=== PATIENT | female | born 1960 | race Caucasian/White ===

== ENCOUNTER 2019-09-16 10:03 | Observation (INO) | payer OTHER ==
[~2019-09-16] VITALS: Ht 170 cm; Wt 72.0 kg
--- NOTE | 2019-09-16 10:37 | ED Chest Pain ---
General Chief Complaint: Respiratory Problems Stated Complaint: SOB;COUGH Nursing Triage Note: ARRIVED VIA AMB TO [facility]. COMPLAINS OF SOA, COUGH X1 WEEK. ALSO STATES HER LEFT CHEST HURTS BUT THINKS IT IS RELATED TO THE COUGHING. Nursing Sepsis Screen: No Definite Risk Source: patient Exam Limitations: no limitations History of Present Illness Date Seen by Provider: Sep 16, 2019 Time Seen by Provider: 10:20 Initial Comments Patient presents ER by private conveyance with chief complaint of the past week having some shortness of breath, nonproductive cough. She smokes about a pack cigarettes per day. She's been told the past at urgent care she may have COPD but she does not follow with a primary care doctor. She's also told she might have high blood pressure. No known history of heart disease. She's having some chest pain off and on in her left upper chest radiating through to her back. It radiates to her axilla but not to her arm or jaw. She has not taken any routine medications. She says her mom and sister both had heart disease early and her mom had to have a CABG in her early 50s. She's not having any fever or chills. No nausea vomiting or sweats. Allergies and Home Medications Allergies Coded Allergies: No Known Drug Allergies (Unverified , 09/16/19) Home Medications Ibuprofen 200 Mg Capsule, 800 MG PO Q8H PRN for PAIN-MILD (1-4), (Reported) Patient Home Medication List Home Medication List Reviewed: Yes Review of Systems Review of Systems Constitutional: No chills, No diaphoresis EENTM: No Blurred Vision, No Double Vision Respiratory: Cough, Shortness of Air, SOA at Rest Cardiovascular: Chest Pain; Denies Edema, Denies Palpitations, Denies Syncope Gastrointestinal: Denies Constipated, Denies Diarrhea, Denies Nausea Genitourinary: Denies Burning, Denies Discharge Musculoskeletal: No back pain, No joint pain Skin: No pruritus, No rash Psychiatric/Neurological: Headache; Denies Numbness, Denies Paresthesia All Other Systems Reviewed Negative Unless Noted: Yes Past Agodlbi-Uuvwiz-Vzpuzw Hx Patient Social History Alcohol Use: Occasionally Uses Recreational Drug Use: No Smoking Status: Current Everyday Smoker Recent Foreign Travel: No Contact w/Someone Who Travel: No Recent Infectious Disease Expo: No Recent Hopitalizations: No Seasonal Allergies Seasonal Allergies: No Past Medical History Surgeries: Yes Hysterectomy Respiratory: Yes (THINKS SHE HAS UNDIAGNOSED COPD/EMPHYSEMA) Cardiac: No Neurological: No Genitourinary: No Gastrointestinal: No Endocrine: No HEENT: No Cancer: No Psychosocial: No Integumentary: No Physical Exam Vital Signs Vital Signs - First Documented 09/16/19 10:03 Temp 36.7 Pulse 99 Resp 18 B/P (MAP) 174/97 (122) Pulse Ox 97 O2 Delivery Room Air Capillary Refill : Less Than 3 Seconds Height, Weight, BMI Height: '" Weight: lbs. oz. kg; 24.00 BMI Method: General Appearance: WD/WN, Mild Distress HEENT: PERRL/EOMI, Pharynx Normal, Moist Mucous Membranes Neck: Full Range of Motion, Normal Inspection Respiratory: Lungs Clear, Normal Breath Sounds, No Accessory Muscle Use, No Respiratory Distress Cardiovascular: Regular Rate, Rhythm, No Edema, Normal Peripheral Pulses Gastrointestinal: Normal Bowel Sounds, Non Tender, Soft Extremity: Normal Capillary Refill, Normal Inspection Neurologic/Psychiatric: Alert, Oriented x3 Skin: Normal Color, Warm/Dry Focused Exam Sepsis Stage: Ruled Out Reason for ruling out sepsis: does not meet SIRS criteria. Possible Source: Pulmonary Progress/Results/Core Measures Results/Orders Lab Results Laboratory Tests Test 09/16/19 10:20 09/16/19 12:00 Range/Units White Blood Count 6.4 4.3-11.0 10^3/uL Red Blood Count 4.55 4.35-5.85 10^6/uL Hemoglobin 15.0 11.5-16.0 G/DL Hematocrit 43 35-52 % Mean Corpuscular Volume 95 80-99 FL Mean Corpuscular Hemoglobin 33 25-34 PG Mean Corpuscular Hemoglobin Concent 35 32-36 G/DL Red Cell Distribution Width 13.4 10.0-14.5 % Platelet Count 258 130-400 10^3/uL Mean Platelet Volume 10.3 7.4-10.4 FL Neutrophils (%) (Auto) 53 42-75 % Lymphocytes (%) (Auto) 30 12-44 % Monocytes (%) (Auto) 12 0-12 % Eosinophils (%) (Auto) 5 0-10 % Basophils (%) (Auto) 1 0-10 % Neutrophils # (Auto) 3.4 1.8-7.8 X 10^3 Lymphocytes # (Auto) 1.9 1.0-4.0 X 10^3 Monocytes # (Auto) 0.8 0.0-1.0 X 10^3 Eosinophils # (Auto) 0.3 0.0-0.3 10^3/uL Basophils # (Auto) 0.0 0.0-0.1 10^3/uL Prothrombin Time 12.6 12.2-14.7 SEC INR Comment 0.9 0.8-1.4 Activated Partial Thromboplast Time 28 24-35 SEC D-Dimer 0.36 0.00-0.49 UG/ML Sodium Level 136 135-145 MMOL/L Potassium Level 4.2 3.6-5.0 MMOL/L Chloride Level 102 98-107 MMOL/L Carbon Dioxide Level 22 21-32 MMOL/L Anion Gap 12 5-14 MMOL/L Blood Urea Nitrogen 13 7-18 MG/DL Creatinine 0.82 0.60-1.30 MG/DL Estimat Glomerular Filtration Rate > 60 BUN/Creatinine Ratio 16 Glucose Level 106 H 70-105 MG/DL Calcium Level 9.1 8.5-10.1 MG/DL Corrected Calcium 8.8 8.5-10.1 MG/DL Magnesium Level 2.2 1.6-2.4 MG/DL Total Bilirubin 0.6 0.1-1.0 MG/DL Aspartate Amino Transf (AST/SGOT) 23 5-34 U/L Alanine Aminotransferase (ALT/SGPT) 23 0-55 U/L Alkaline Phosphatase 102 40-136 U/L Myoglobin 47.1 10.0-92.0 NG/ML Troponin I < 0.028 <0.028 NG/ML B-Type Natriuretic Peptide 49.2 <100.0 PG/ML Total Protein 8.1 6.4-8.2 GM/DL Albumin 4.4 3.2-4.5 GM/DL My Orders Orders - KATHIE LEUNG Cbc With Automated Diff (09/16/19 10:31) Magnesium (09/16/19 10:31) Chest 1 View, Ap/Pa Only (09/16/19 10:31) Ekg Tracing (09/16/19 10:31) Comprehensive Metabolic Panel (09/16/19 10:31) Myoglobin Serum (09/16/19 10:31) Protime With Inr (09/16/19 10:31) Partial Thromboplastin Time (09/16/19 10:31) O2 (09/16/19 10:31) Monitor-Rhythm Ecg Trace Only (09/16/19 10:31) Lipid Panel (09/17/19 06:00) Ed Iv/Invasive Line Start (09/16/19 10:31) BNP (09/16/19 10:31) Troponin I (09/16/19 10:31) Nitroglycerin 0.4 Mg Btl 25's (Nitrostat (09/16/19 10:45) Aspirin Chewable Tablet (Baby Aspirin Ch (09/16/19 10:45) Coronavirus Sars-Cov-2 So 2018 (09/16/19 10:31) Fibrin Degradation Products (09/16/19 10:20) Ceftriaxone For Iv Use (Rocephin For I (09/16/19 12:15) Azithromycin Tablet (Zithromax Tablet) (09/16/19 12:15) Blood Culture (09/16/19 12:10) Medications Given in ED Current Medications Medications Dose Ordered Sig/Madi Route Start Time Stop Time Status Last Admin Dose Admin Aspirin 324 mg ONCE ONCE PO 09/16/19 10:45 09/16/19 10:46 DC 09/16/19 10:39 324 MG Azithromycin 500 mg ONCE ONCE PO 09/16/19 12:15 09/16/19 12:16 DC 09/16/19 12:21 500 MG Ceftriaxone Sodium 1000 mg/ Sterile Water 10 ml @ 200 mls/hr ONCE ONCE IV 09/16/19 12:15 09/16/19 12:17 DC 09/16/19 12:20 200 MLS/HR Nitroglycerin 0.4 mg UD PRN SL 09/16/19 10:45 09/16/19 13:02 DC 09/16/19 10:51 0.4 MG Vital Signs/I&O 09/16/19 10:03 Temp 36.7 Pulse 99 Resp 18 B/P (MAP) 174/97 (122) Pulse Ox 97 O2 Delivery Room Air Blood Pressure Mean: 122 Progress Progress Note #1: Time: 10:36 Progress Note We'll trial aspirin and nitroglycerin. We'll get COVID-19 swab. Even she has a negative troponin should have 4 points and the heart score so we would recommend observation. Presently she rates her pain as a 4 out of 10. Progress Note #2: Time: 12:01 Progress Note After discussing the case with the patient she agrees to stay on observation to repeat delta troponins. We'll cover her with Rocephin and azithromycin and get some blood cultures. She is not septic. Initial ECG Impression Date: Sep 16, 2019 Initial ECG Impression Time: 10:10 Initial ECG Rate: 89 Initial ECG Rhythm: Normal Sinus Initial ECG Intervals: Normal Initial ECG Impression: Normal Initial ECG Comparisson: No Previous ECG Available Comment Normal sinus rhythm without relevant ST changes. Diagnostic Imaging Diagonstic Imaging: Xray Plain Films/CT/US/NM/MRI: chest (1v) Comments NAME: JEANNETTE FOX [facility] REC#: [id number] PT STATUS: REG ER : 1960 PHYSICIAN: KATHIE LEUNG MD ADMIT DATE: 09/16/19/ER Draft Date of Exam:09/16/19 CHEST 1 VIEW, AP/PA ONLY INDICATION: Shortness of breath and cough. TIME OF EXAM: 10:45 AM COMPARISON: No prior studies are available for comparison. The heart size is normal. Pulmonary vascularity is normal. There is minimal density in the right base. Possibility of minimal infiltrate cannot be excluded. Left lung is clear. There is no effusion. There is no pneumothorax. IMPRESSION: There may be minimal infiltrate in the right base. The study is otherwise unremarkable. Dictated on workstation # [id number] Dict: 09/16/19 1101 Trans: 09/16/19 1105 [facility] [id number] Interpreted by: UMBERTO KAUR MD Electronically signed by: Reviewed: Reviewed by Me Departure Communication (Admissions) Time/Spoke to Admitting Phy: 12:[address] Elkins. She agrees to observe the patient with cardiac consultation. She agrees with Rocephin and azithromycin. Time/Spoke to Consulting Phy: 12:[address] Lopez and he agrees to consult on the patient with serial troponins. Impression Primary Impression: Pneumonia Qualified Codes: J18.1 - Lobar pneumonia, unspecified organism Additional Impressions: Acute coronary syndrome COVID-19 PUI Disposition: ADMITTED INPATIENT Condition: Stable Admissions Decision to Admit Reason: Admit from ER (General) Decision to Admit/Date: Sep 16, 2019 Time/Decision to Admit Time: 11:29 KATHIE LEUNG Sep 16, 2019 10:37
[2019-09-16] MEDS: NITROGLYCERIN 0.4 MG SL TABS BTL 25'S SL PRN ×2 (10:39→10:51)
[2019-09-16 10:40] LABS: BASOPHILS % (AUTO) 1 % (0-10); EOSINOPHILS # (AUTO) 0.3 10^3/uL (0.0-0.3); EOSINOPHILS % (AUTO) 5 % (0-10); HEMATOCRIT 43 % (35-52); LYMPHOCYTES # (AUTO) 1.9 X 10^3 (1.0-4.0); LYMPHOCYTES % (AUTO) 30 % (12-44); MEAN CORPUSCULAR HEMOGLOBIN 33 PG (25-34); MEAN CORPUSCULAR HGB CONC 35 G/DL (32-36); MEAN CORPUSCULAR VOLUME 95 FL (80-99); MEAN PLATELET VOLUME 10.3 FL (7.4-10.4); MONOCYTES # (AUTO) 0.8 X 10^3 (0.0-1.0); MONOCYTES % (AUTO) 12 % (0-12); NEUTROPHILS # (AUTO) 3.4 X 10^3 (1.8-7.8); NEUTROPHILS % (AUTO) 53 % (42-75); PLATELET COUNT 258 10^3/uL (130-400); RED CELL DISTRIBUTION WIDTH 13.4 % (10.0-14.5); WHITE BLOOD COUNT 6.4 10^3/uL (4.3-11.0)
[2019-09-16] MEDS ORDERED: ASPIRIN 81 MG CHEW (CHILDREN'S ASA) PO ONE (10:45)
[2019-09-16 10:53] LABS: FIBRIN DEGRADATION PRODUCTS 0.36 UG/ML (0.00-0.49); INR 0.9 (0.8-1.4); PROTHROMBIN TIME PATIENT 12.6 SEC (12.2-14.7)
[2019-09-16 10:55] LABS: ALBUMIN 4.4 GM/DL (3.2-4.5); CHLORIDE 102 MMOL/L (98-107); POTASSIUM 4.2 MMOL/L (3.6-5.0); SODIUM 136 MMOL/L (135-145)
[2019-09-16 10:56] LABS: CALCIUM 9.1 MG/DL (8.5-10.1)
[2019-09-16 10:57] LABS: GLUCOSE 106 MG/DL (70-105)
[2019-09-16 10:58] LABS: TOTAL PROTEIN 8.1 GM/DL (6.4-8.2)
[2019-09-16 10:59] LABS: BILIRUBIN,TOTAL 0.6 MG/DL (0.1-1.0); CARBON DIOXIDE 22 MMOL/L (21-32)
[2019-09-16 11:01] LABS: ALKALINE PHOSPHATASE 102 U/L (40-136); CREATININE SERUM 0.82 MG/DL (0.60-1.30); GFR ESTIMATED > 60
[2019-09-16 11:02] LABS: BUN/CREATININE RATIO 16
[2019-09-16 11:04] LABS: ALANINE AMINOTRANSFERASE 23 U/L (0-55); MAGNESIUM 2.2 MG/DL (1.6-2.4)
--- NOTE | 2019-09-16 11:05 | Diagnostic Imaging Report ---
INDICATION: Shortness of breath and cough. TIME OF EXAM: 10:45 AM COMPARISON: No prior studies are available for comparison. The heart size is normal. Pulmonary vascularity is normal. There is minimal density in the right base. Possibility of minimal infiltrate cannot be excluded. Left lung is clear. There is no effusion. There is no pneumothorax. IMPRESSION: There may be minimal infiltrate in the right base. The study is otherwise unremarkable. Dictated by: Dictated on workstation # [id number]
--- NOTE | 2019-09-16 11:09 | NUR ---
PT STATES HER PAIN IS ABOUT THE SAME. DESCRIBES THE PAIN IN HER LEFT CHEST JUST SORE. BP 138/87. DENIES NEEDS AT THIS TIME. PT STATES SHE HAS BEEN TALKING TO HER FAMILY ON THE PHONE.
--- OUTSIDE RECORDS SUMMARY | 2019-09-16 11:23 | XMS REPORT ---
Author Imelda Jimenez Organization [employer] Address Unknown Phone Unavailable Care Team Providers Care Hand Inspector Name Role Phone JACQUELYN GARCIA CP Unavailable Allergies No Known Allergies Problems Problem Type Condition Code Onset Dates Condition Statu s Assessment Encounter for immunization Z23 A ctive Medications No Known Medications Procedures Procedure Coding System Code Date SINGLE IMMUNIZATION ADMIN CPT-4 84289 Nov FLUARIX QUAD (3 & UP)-GSK-2014 CPT-[address] 2014 Results No Known Results Immunizations Vaccine Administration Date FLUARIX QUAD (3 & UP)-GSK-2014Dec 20, 2014 Summary Purpose [employer] Submission
--- OUTSIDE RECORDS SUMMARY | 2019-09-16 11:23 | XMS REPORT | Continuity of Care Document ---
Demographics Preferred Language Unknown Marital Status Unknown Moravian Affiliation Unknown Race Unknown Ethnic Group Unknown Author Organization Unknown Address Unknown Phone Unavailable Allergies There is no data. Medications There is no data. Problems There is no data. Procedures There is no data. Results Test Result Range Complete blood count (CBC) with automate d white blood cell (WBC) differential - 09/16/19 10:20 Blood leukocytes automated count (number/volume) 6.4 10*3/uL 4.3-11.0 Blood erythrocytes automated count (number/volume) 4.55 10*6/uL 4.35-5.85 Venous blood hemoglobin measurement (mass/volume) 15.0 g/dL 11.5-16.0 Blood hematocrit (volume fraction) 43 % 35-52 Automated erythrocyte mean corpuscular volume 95 [ foz_us] 80-99 Automated erythrocyte mean corpuscular h emoglobin (mass per erythrocyte) 33 pg 25-34 Automated erythrocyte mean corpuscular h emoglobin concentration measurement (mass/volume) 35 g/dL 32-36 Automated erythrocyte distribution width ratio 13. 4 % 10.0- 14.5 Automated blood platelet count (count/volume) 258 10*3/uL 130-400 Automated blood platelet mean volume measurement 10.3 [foz_us] 7.4-10.4 Automated blood neutrophils/100 leukocytes 53 % 42-75 Automated blood lymphocytes/100 leukocytes 30 % 12-44 Blood monocytes/100 leukocytes 12 % 0-12 Automated blood eosinophils/100 leukocytes 5 % 0-10 Automated blood basophils/100 leukocytes 1 % 0-10 Blood neutrophils automated count (number/volume) 3.4 10*3 1.8-7.8 Blood lymphocytes automated count (number/volume) 1.9 10*3 1.0-4.0 Blood monocytes automated count (number/volume) 0. 8 10*3 0.0-1.0 Automated eosinophil count 0.3 10*3/uL 0 .0-0.3 Automated blood basophil count (count/volume) 0.0 10*3/uL 0.0-0.1 PT panel in platelet poor plasma by coag ulation assay - 09/16/19 10:20 Prothrombin time (PT) in platelet poor plasma by coagu lation assay 12.6 s 12.2-14.7 INR in platelet poor plasma or blood by coagulation as say 0.9 0.8-1.4 Activated partial thromboplastin time (a PTT) in platelet poor plasma bycoagulation assay - 09/16/19 10:20 Activated partial thromboplastin time (a PTT) in platelet poor plasma bycoagulation assay 28 s 24-35 Fibrin D-dimer FEU measurement in platel et poor plasma (mass/volume) - 09/16/19 10:20 Fibrin D-dimer FEU measurement in platelet poor plasma (mass/volume) 0.36 ug/mL 0.00-0.49 Comprehensive metabolic panel - 09/16/19 10:20 Serum or plasma sodium measurement (moles/volume) 136 mmol/L 135-145 Serum or plasma potassium measurement (moles/volume) 4.2 mmol/L 3.6-5.0 Serum or plasma chloride measurement (moles/volume) 102 mmol/L 98-107 Carbon dioxide 22 mmol/L 21-32 Serum or plasma anion gap determination (moles/volume) 12 mmol/L 5-14 Serum or plasma urea nitrogen measurement (mass/volume ) 13 mg/dL 7-18 Serum or plasma creatinine measurement (mass/volume) 0.82 mg/dL 0.60-1.30 Serum or plasma urea nitrogen/creatinine mass ratio 16 NRG Serum or plasma creatinine measurement w ith calculation of estimated glomerular filtration rate > NRG Serum or plasma glucose measurement (mass/volume) 106 mg/dL 70-105 Serum or plasma calcium measurement (mass/volume) 9.1 mg/dL 8.5-10.1 Serum or plasma total bilirubin measurement (mass/volu me) 0.6 mg/dL 0.1-1.0 Serum or plasma alkaline phosphatase david surement (enzymatic activity/volume) 102 U/L 40-136 Serum or plasma aspartate aminotransfera se measurement (enzymatic activity/volume) 23 U/L 5-34 Serum or plasma alanine aminotransferase measurement (enzymatic activity/volume) 23 U/L 0-55 Serum or plasma protein measurement (mass/volume) 8.1 g/dL 6.4-8.2 Serum or plasma albumin measurement (mass/volume) 4.4 g/dL 3.2-4.5 CALCIUM CORRECTED 8.8 mg/dL 8.5-10.1 Magnesium - 09/16/19 10:20 Magnesium 2.2 mg/dL 1.6-2.4 Myoglobin, serum - 09/16/19 10:20 Myoglobin, serum 47.1 ng/mL 10.0-92.0 Serum or plasma troponin i.cardiac measu rement (mass/volume) - 09/16/19 10:20 Serum or plasma troponin i.cardiac measurement (mass/v olume) < ng/mL <0.028 Encounters ACCT No. Visit Date/Time Discharge Status Pt. Type Provider Facility Loc./Unit Complaint [id number] 09/16/2019 10:54:00 Document Registration
--- NOTE | 2019-09-16 11:30 | NUR ---
RESTING IN BED ET BLANKET GIVEN. NOTIFIED WE WERE WAITING ON LABS TO COME BACK.
--- NOTE | 2019-09-16 11:58 | NUR ---
TALKING TO THE PT VIA PHONE AT THIS TIME.
--- NOTE | 2019-09-16 12:05 | NUR ---
METAL DRILL OPERATOR CONTACTED FOR A BED.
--- NOTE | 2019-09-16 12:13 | NUR ---
REPORT CALLED TO VICTOR HUGO HANEY.
[2019-09-16] MEDS ORDERED: cefTRIAXone FOR IV USE 1,000 MG in WATER (STERILE) FOR INJECTION 10 ML IV ONE (12:15)
[2019-09-16] MEDS ORDERED: AZITHROMYCIN 250 MG TAB (ZITHROMAX) PO ONE (12:15)
--- NOTE | 2019-09-16 12:59 | NUR ---
RESTING IN BED. DENIES NEEDS. STATES SHE HAS BEEN IN CONTACT WITH HER FAMILY CONCERNING ADMISSION.
[2019-09-16] MEDS ORDERED: NITROGLYCERIN 0.4 MG SL TABS BTL 25'S SL PRN (13:00)
[2019-09-16] MEDS ORDERED: ONDANSETRON 4 MG/2 ML (SDV) Z0FRAN IVP PRN (13:00)
[2019-09-16] MEDS ORDERED: ACETAMINOPHEN 500 MG TAB (TYLENOL) PO PRN (13:00)
[2019-09-16] MEDS ORDERED: ANTACID SUSP 30 ML UDC (MYLANTA) PO PRN (13:00)
[2019-09-16] MEDS ORDERED: morphine INJ 4 MG/ML 1 ML (VIAL/SYRINGE) IV PRN (13:00)
--- NOTE | 2019-09-16 13:04 | NUR ---
PATTERNMAKER APPRENTICE WOOD CONTACTED DUE TO PT NOT BEING MOVED UPSTAIRS YET.
--- NOTE | 2019-09-16 13:30 | NUR ---
JEANNETTE FOX S admitted to room 426-1, with an admitting diagnosis of , on 09/16/19 from ED via , accompanied by STAFF. JEANNETTE FOX introduced to surroundings, call light, bed controls, phone, TV, temperature control, lights, meal times, smoking policy, visitor policy, side rail policy, bathrooms and showers. Patient Rights given to patient in the handbook. JEANNETTE FOX verbalizes understanding that [facility] is not responsible for the loss or damage to any personal effects or valuables that are kept in the patients posession during their hospitalization.
[2019-09-16 14:00] VITALS: BP 174/97
--- NOTE | 2019-09-16 14:09 | History & Physical-Hospitalist ---
History of Present Illness HPI/Chief Complaint Pt is a 59yoCF with no known past medical history who presented to the ER due to SOB, cough, and chest pain. She states that this started about 1 week ago. She has no sick contacts or exposure to COVID19. She denies fever. She has developed a productive cough and has noticed herself wheezing. She does not have a formal diagnosis of COPD but has needed inhalers in the past. She is an active smoker but hasn't smoked for the past week due to SOB. She is also [place]. Source: patient Date Seen 09/16/19 Time Seen by a Provider: 14:09 Attending Physician Hamilton Elkins MD PCP No,Local Physician Referring Physician Date of Admission Sep 16, 2019 at 12:25 Home Medications & Allergies Home Medications Reviewed patient Home Medication Reconciliation performed by pharmacy medication reconciliations auto technician mechanic and/or nursing. Patients Allergies have been reviewed. Allergies Allergies Coded Allergies No Known Drug Allergies (Unverified09/16/19) Past Mzrvegh-Lmbivq-Jevrtw Hx Past Med/Social Hx: Reviewed Nursing Past Med/Soc Hx Patient Social History Alcohol Use: Occasionally Uses Recreational Drug Use: No Smoking Status: Current Everyday Smoker Recent Foreign Travel: No Contact w/other who traveled: No Recent Hopitalizations: No Recent Infectious Disease Expo: No Seasonal Allergies Seasonal Allergies: No Past Medical History Surgeries: Hysterectomy Family History Reviewed Nursing Family Hx No Pertinent Family Hx Review of Systems Constitutional: No chills, No fever EENTM: no symptoms reported Respiratory: see HPI, cough, dyspnea on exertion, phlegm, short of breath Cardiovascular: chest pain; No edema, No Hx of Intervention, No palpitations Gastrointestinal: no symptoms reported Genitourinary: no symptoms reported Musculoskeletal: no symptoms reported Skin: no symptoms reported Psychiatric/Neurological: No Symptoms Reported Physical Exam Physical Exam Vital Signs Vital Signs - First Documented 09/16/19 09/16/19 10:03 14:00 Temp 36.7 Pulse 99 Resp 18 B/P (MAP) 174/97 (122) Pulse Ox 97 O2 Delivery Room Air FiO2 21 Capillary Refill : Less Than 3 Seconds Height, Weight, BMI Height: '" Weight: lbs. oz. kg; 24.91 BMI Method: General Appearance: No Apparent Distress, WD/WN HEENT: PERRL/EOMI, Moist Mucous Membranes; No Scleral Icterus (L), No Scleral Icterus (R) Neck: Normal Inspection, Supple; No Thyromegaly Respiratory: No No Accessory Muscle Use, No No Respiratory Distress; Crackles, Wheezing Cardiovascular: Regular Rate, Rhythm, No JVD, No Murmur Gastrointestinal: Normal Bowel Sounds, Non Tender, Soft Extremity: Normal Capillary Refill, No Calf Tenderness, No Pedal Edema Neurologic/Psychiatric: Alert, Oriented x3, Normal Mood/Affect Skin: Normal Color, Warm/Dry Results Results/Procedures Labs Laboratory Tests 09/16/19 10:20 Patient resulted labs reviewed. Imaging: Reviewed Imaging Report Imaging [facility] [place] [place] NAME: JEANNETTE FOX [facility] REC#: [id number] PT STATUS: REG ER : 1960 PHYSICIAN: KATHIE LEUNG MD ADMIT DATE: 09/16/19/ER Draft Date of Exam:09/16/19 CHEST 1 VIEW, AP/PA ONLY INDICATION: Shortness of breath and cough. TIME OF EXAM: 10:45 AM COMPARISON: No prior studies are available for comparison. The heart size is normal. Pulmonary vascularity is normal. There is minimal density in the right base. Possibility of minimal infiltrate cannot be excluded. Left lung is clear. There is no effusion. There is no pneumothorax. IMPRESSION: There may be minimal infiltrate in the right base. The study is otherwise unremarkable. Dictated on workstation # [id number] Dict: 09/16/19 1101 Trans: 09/16/19 1105 [facility] [id number] Interpreted by: UMBERTO KAUR MD Electronically signed by: Assessment/Plan Admission Diagnosis Chest pain Admission Status: Observation Assessment and Plan Chest pain Troponin negative on arrival as well as EKG Cardiology consulted, appreciate assistance Trend troponins ASA Likely COPD exacerbation Pneumonia- community acquired On room air Start on Prednisone due to wheezing Rocephin and Azithro for CAP MAT protocol COVID pending HTN Lisinopril started Diagnosis/Problems Diagnosis/Problems (1) Smoker Status: Chronic (2) COPD suggested by initial evaluation Status: Acute (3) HTN (hypertension) Status: Acute Qualifiers: Hypertension type: essential hypertension Qualified Codes: I10 - Essential (primary) hypertension (4) Chest pain Status: Acute Qualifiers: Chest pain type: chest pain on breathing Qualified Codes: R07.1 - Chest pa in on breathing (5) Pneumonia Status: Acute Qualifiers: Pneumonia type: due to unspecified organism Laterality: right Lung location: lower lobe of lung Qualified Codes: J18.1 - Lobar pneumonia, unspecified organism Clinical Quality Measures DVT/VTE Risk/Contraindication: Risk Factor Score Per Nursin RFS Level Per Nursing on Admit: 3=High HAMILTON ELKINS MD Sep 16, 2019 14:09
[2019-09-16] MEDS ORDERED: predniSONE 20 MG TAB PO NR (14:15)
--- NOTE | 2019-09-16 14:36 | Consultation-Cardiology ---
HPI-Cardiology Cardiology Consultation: Date of Consultation 09/16/19 Date of Admission Attending Physician Kaitlyn Elkins MD Admitting Physician No,Local Physician Consulting Physician Fernando LOPEZ MD HPI: Time Seen by a Provider: 13:30 Chief Complaint: Chest pain This is a 59-year-old lady who has history of active smoking who presents with chest pain, shortness of breath and nonproductive cough. She has positive family history of premature CAD in the mother. Questionable history of COPD however she does not have a primary care physician. Likely hypertension as well. However denies any other medical or cardiac history. Chest pain off and on in the left upper chest radiating to the shoulder and to the back. No exacerbating or relieving factors. Occasionally reproducible. She thinks it's a old muscle. Mild to moderate intensity. No other associated cardiac complaints. Review of Systems-Cardiology Review of Systems Constitutional: As described under HPI; No As described under HPI, No no symptoms reported, No chills, No fever, No lightheadedness Eyes: No As described under HPI, No no symptoms reported, No blindness, No blurred vision, No contact lenses, No drainage, No decreased acuity, No foreign body sensation, No pain, No vision change Ears/Nose/Throat: No As described under HPI, No no symptoms reported, No chronic hearing loss, No ear discharge, No ear pain, No nasal drainage, No ulcerations Respiratory: No no symptoms reported; As described under HPI; No As described under HPI; cough; No orthopnea; shortness of breath; No SOB with excertion Cardiovascular: No no symptoms reported; As described under HPI; No As described under HPI; chest pain; No edema, No irregular heart rate, No lightheadedness, No palpitations Gastrointestinal: No no symptoms reported, No As described under HPI, No abdomen distended, No abdominal pain, No blood streaked bowels, No constipation, No diarrhea, No nausea, No vomiting, No stool coloration changes Genitourinary: No As described under HPI, No burning, No dysuria, No discharge, No frequency, No flank pain, No hematuria, No urgency : Yes : No Skin: No rash, No skin related problems, No ulcerations Psychiatric/Neurological: No anxiety, No depression, No seizure, No focal weakness, No syncope Hematologic: No bleeding abnormalities All Other Systems Reviewed Negative Unless Noted: Yes LDU-Bijbvu-Sksdyb Hx Patient Social History Alcohol Use: Occasionally Uses Recreational Drug Use: No Smoking Status: Current Everyday Smoker Recent Foreign Travel: No Recent Infectious Disease Expo: No Past Medical History PMH As described under Assessment. Allergies and Home Medications Allergies Coded Allergies: No Known Drug Allergies (Unverified , 09/16/19) Home Medications No Active Prescriptions or Reported Meds Patient Home Medication List Home Medication List Reviewed: Yes Physical Exam-Cardiology Physical Exam Vital Signs/I&O 09/16/19 09/16/19 09/16/19 09/16/19 10:03 13:30 13:42 14:00 Temp 36.7 36.7 Pulse 99 81 87 99 Resp 18 16 22 B/P (MAP) 174/97 (122) 154/99 Pulse Ox 97 97 98 97 O2 Delivery Room Air Room Air Room Air FiO2 21 09/16/19 14:28 Pulse 91 Capillary Refill : Less Than 3 Seconds Constitutional: AAO x 3 HEENT: PERRL; No discharge; hearing is well preserved, oral hygience is good; No ulceration, No xanthelasmas are seen Neck: No carotid bruit; carotid pulses are 2 + bilaterally Respiratory: chest is bilaterally symmetric, lungs clear to auscultation Cardiovascular: regular rate-rhythm, S1 and S2; No diastolic murmur, No systolic murmur Gastrointestinal: soft, audible bowel sounds; No spleenomegaly Rectal: deferred Extremities: normal range of motion, non-tender, normal inspection; No clubbing, No cyanosis; no lower extremity edema bilateral; No significant edema Neurologic/Psychiatric: no motor/sensory deficits, alert, normal mood/affect, oriented x 3, power is 5/5 both on sides Skin: normal color, warm/dry; No rash, No ulcerations Data Review Labs Laboratory Tests 09/16/19 10:20: White Blood Count 6.4, Red Blood Count 4.55, Hemoglobin 15.0, Hematocrit 43, Mean Corpuscular Volume 95, Mean Corpuscular Hemoglobin 33, Mean Corpuscular Hemoglobin Concent 35, Red Cell Distribution Width 13.4, Platelet Count 258, Mean Platelet Volume 10.3, Neutrophils (%) (Auto) 53, Lymphocytes (%) (Auto) 30, Monocytes (%) (Auto) 12, Eosinophils (%) (Auto) 5, Basophils (%) (Auto) 1, Neutrophils # (Auto) 3.4, Lymphocytes # (Auto) 1.9, Monocytes # (Auto) 0.8, Eosinophils # (Auto) 0.3, Basophils # (Auto) 0.0, Prothrombin Time 12.6, INR Comment 0.9, Activated Partial Thromboplast Time 28, D-Dimer 0.36, Sodium Level 136, Potassium Level 4.2, Chloride Level 102, Carbon Dioxide Level 22, Anion Gap 12, Blood Urea Nitrogen 13, Creatinine 0.82, Estimat Glomerular Filtration Rate > 60, BUN/Creatinine Ratio 16, Glucose Level 106H, Calcium Level 9.1, Corrected Calcium 8.8, Magnesium Level 2.2, Total Bilirubin 0.6, Aspartate Amino Transf (AST/SGOT) 23, Alanine Aminotransferase (ALT/SGPT) 23, Alkaline Phosphatase 102, Myoglobin 47.1, Troponin I < 0.028, B-Type Natriuretic Peptide 49.2, Total Protein 8.1, Albumin 4.4 09/16/19 12:00: ECG Impression ECG Initial ECG Rhythm: Normal Sinus, PVC Initial ECG Impression: Normal A/P-Cardiology Assessment/Admission Diagnosis Chest pain, Hypertension, Active smoking, PVCs, COPD Plan Chest pain, initial EKG did not show any acute ST-T wave abnormalities. First troponin is negative. Serial troponin is recommended. If positive troponin, will recommend coronary angiography. If serial negative troponin, will consider outpatient stress test. Continue aspirin. Echocardiogram when COVID results negative. Hypertension, start lisinopril 10 mg daily. Active smoking, smoking cessation was strongly recommended. PVCs, a frequent PVCs, consider beta blockers. COPD, no active wheezing. Will defer to the primary team. Thank you for your consultation. Please call me if you have any questions. Clarke Lopez MD, FACP, FACC, FSCAI, FHRS, CCDS Interventional Cardiology Cardiac Electrophysiology Vascular Medicine and Endovascular Interventions Clinical Quality Measures DVT/VTE Risk/Contraindication: Risk Factor Score Per Nursin RFS Level Per Nursing on Admit: 3=High Fernando LOPEZ MD Sep 16, 2019 14:36
[2019-09-16] MEDS ORDERED: IBUP-2185 PO (14:58)
--- NOTE | 2019-09-16 14:58 | NUR ---
SPOKE WITH THE PT (I CALLED THE PATIENTS ROOM PHONE) TO COMPLETE THE MED REC PT DENIES TAKING ANY PRESCRIPTION MEDICATION OTC MEDS: IBUPROFEN 200MG PT SAYS SHE TAKES 4 TABS AT A TIME
[2019-09-16] MEDS ORDERED: lisINopril 10 MG (PRINIVIL) TABLET PO NR (15:00)
--- OUTSIDE RECORDS SUMMARY | 2019-09-16 15:34 | XMS REPORT | Continuity of Care Document ---
Demographics Preferred Language Unknown Marital Status Unknown [employer] Affiliation Unknown Race Unknown Ethnic Group Unknown [...] i.cardiac measurement (mass/v olume) < ng/mL <0.028 Serum or plasma lithium measurement (mol es/volume) - 09/16/19 10:20 BNP PT 49.2 pg/mL <100.0 Encounters ACCT No. Visit Date/Time Discharge Status Pt. Type Provider Facility Loc./Unit Complaint [id number] 09/16/2019 10:54:00 Document Registration
[2019-09-16 16:04] VITALS: BP 150/95
[2019-09-16] MEDS ORDERED: RT-ALBUTEROL INHALER HFA (VENTOLIN HFA) 18 GM IH PRN (17:00)
--- NOTE | 2019-09-16 17:16 | NUR ---
DR MCKEON AND KAJAL NOTIFIED OF PTS 1600 TROPONIN LAB WAS WNL. NO NEW ORDERS.
[2019-09-16 20:27] VITALS: BP 146/88
[2019-09-16] MEDS ORDERED: MELATONIN 3 MG TABLET PO PRN (20:45)
[2019-09-16] MEDS: RT-ALBUTEROL INHALER HFA (VENTOLIN HFA) 18 GM IH SCH (23:22)
[2019-09-17 00:18] VITALS: BP 131/83
[2019-09-17] MEDS: RT-ALBUTEROL INHALER HFA (VENTOLIN HFA) 18 GM IH SCH ×3 (03:27→07:48)
[2019-09-17 04:26] VITALS: BP 124/80
[2019-09-17 05:56] LABS: BASOPHILS % (AUTO) 0 % (0-10); EOSINOPHILS # (AUTO) 0.1 10^3/uL (0.0-0.3); EOSINOPHILS % (AUTO) 1 % (0-10); HEMATOCRIT 43 % (35-52); HEMOGLOBIN 14.5 G/DL (11.5-16.0); LYMPHOCYTES # (AUTO) 1.7 X 10^3 (1.0-4.0); LYMPHOCYTES % (AUTO) 23 % (12-44); MEAN CORPUSCULAR HEMOGLOBIN 32 PG (25-34); MEAN CORPUSCULAR HGB CONC 34 G/DL (32-36); MEAN CORPUSCULAR VOLUME 94 FL (80-99); MEAN PLATELET VOLUME 10.5 FL (7.4-10.4); MONOCYTES # (AUTO) 0.8 X 10^3 (0.0-1.0); MONOCYTES % (AUTO) 11 % (0-12); NEUTROPHILS # (AUTO) 4.9 X 10^3 (1.8-7.8); NEUTROPHILS % (AUTO) 66 % (42-75); PLATELET COUNT 266 10^3/uL (130-400); RED CELL DISTRIBUTION WIDTH 13.2 % (10.0-14.5); WHITE BLOOD COUNT 7.5 10^3/uL (4.3-11.0)
[2019-09-17 06:09] LABS: CHLORIDE 104 MMOL/L (98-107); POTASSIUM 4.2 MMOL/L (3.6-5.0); SODIUM 138 MMOL/L (135-145)
[2019-09-17 06:10] LABS: CALCIUM 9.2 MG/DL (8.5-10.1)
[2019-09-17 06:11] LABS: GLUCOSE 102 MG/DL (70-105); TOTAL PROTEIN 7.6 GM/DL (6.4-8.2); TRIGLYCERIDES 54 MG/DL (<150); VLDL CHOLESTEROL 11 MG/DL (5-40)
[2019-09-17 06:12] LABS: CARBON DIOXIDE 21 MMOL/L (21-32)
[2019-09-17 06:13] LABS: BILIRUBIN,TOTAL 0.5 MG/DL (0.1-1.0)
[2019-09-17 06:15] LABS: ALKALINE PHOSPHATASE 89 U/L (40-136); CREATININE SERUM 0.79 MG/DL (0.60-1.30); GFR ESTIMATED > 60
[2019-09-17 06:16] LABS: BUN/CREATININE RATIO 19; CHOLESTEROL 145 MG/DL (< 200)
[2019-09-17 06:17] LABS: HDL CHOLESTEROL 72 MG/DL (40-60)
[2019-09-17 06:18] LABS: ALANINE AMINOTRANSFERASE 20 U/L (0-55)
[2019-09-17] MEDS ORDERED: predniSONE 20 MG TAB PO SCH (07:00)
[2019-09-17 08:07] VITALS: BP 125/87
--- NOTE | 2019-09-17 08:51 | Diagnostic Imaging Report ---
INDICATION: Pneumonia on admission. TECHNIQUE: Two view chest 8:46 AM CORRELATION STUDY: 09/16/2019 FINDINGS: The heart size, mediastinal configuration and pulmonary vasculature are within normal limits. Lung choudhury are somewhat hyperinflated. Increased density in lung bases are present, largely overlapping summation shadow. No definitive consolidating infiltrate. No effusion. Degenerative changes with bridging osteophytes thoracic spine. IMPRESSION: 1. No definitive pulmonary infiltrate at followup assessment. Lung choudhury are somewhat hyperinflated. Dictated by: Dictated on workstation # [id number]
[2019-09-17] MEDS ORDERED: lisINopril 10 MG (PRINIVIL) TABLET PO SCH (09:00)
[2019-09-17] MEDS ORDERED: ASPIRIN E.C. 81 MG (ECOTRIN) TAB PO SCH (09:00)
[2019-09-17] MEDS ORDERED: AZIT250T12 PO (09:06)
[2019-09-17] MEDS ORDERED: LISI10TA2 PO (09:06)
[2019-09-17] MEDS ORDERED: CEPH-507 PO (09:06)
[2019-09-17] MEDS ORDERED: PRD20T PO (09:06)
[2019-09-17] MEDS ORDERED: RT-ALBUINH INH (09:09)
--- NOTE | 2019-09-17 09:09 | Discharge Inst-Simple/Standard ---
Discharge Inst-Standard Patient Instructions/Follow Up Plan of Care/Instructions/FU: Please continue to take your medications as written. Please follow up with your primary care doctor to follow up this hospital stay and with Dr Lopez as he recommends for further testing. Activity as Tolerated: Yes Discharge Diet: Cardiac Diet Return to The Hospital For: Chest pain, shortness of breath, abdominal pain, fever, if you feel you are getting worse. HAMILTON MCKEON MD Sep 17, 2019 09:08
--- NOTE | 2019-09-17 09:25 | Discharge Summary ---
Diagnosis/Chief Complaint Date of Admission Sep 16, 2019 at 12:25 Date of Discharge Discharge Date: Sep 17, 2019 Admission Diagnosis Chest pain Primary Care Discharge Diagnosis (1) Smoker Status: Chronic (2) COPD suggested by initial evaluation Status: Acute (3) HTN (hypertension) Status: Acute (4) Chest pain Status: Acute (5) Pneumonia Status: Acute Discharge Summary Discharge Physical Exam Allergies: Coded Allergies: No Known Drug Allergies (Unverified , 09/16/19) Vitals & I&Os Vital Signs Date Time Temp Pulse Resp B/P (MAP) Pulse Ox O2 Delivery O2 Flow Rate FiO2 09/17/19 08:07 36.3 80 18 125/87 (100) 94 Room Air 09/16/19 14:00 21 General Appearance: No Apparent Distress, WD/WN Respiratory: No Accessory Muscle Use, No Respiratory Distress, Wheezing (scant- end expiratory, much improved) Cardiovascular: Regular Rate, Rhythm, No Murmur Neurologic/Psychiatric: Alert, Oriented x3 Hospital Course Pt was admitted due to shortness of breath and chest pain. On exam she had diffuse wheezing and hyperinflated lungs on chest x ray. With history of active smoking this was very suggestive fo COPD though no definitive diagnosis. She was treated with steroids and CAP coverage for small infiltrate on CXR. She improved and was requesting discharge on second day of admission. Troponins were trended and negative. Cardiology was consulted and recommended outpatient stress testing. She was discharged home in stable condition to follow up this hospital stay with Dr Earl. Labs (last 24 hrs) Laboratory Tests 09/16/19 10:20: White Blood Count 6.4, Red Blood Count 4.55, Hemoglobin 15.0, Hematocrit 43, Mean Corpuscular Volume 95, Mean Corpuscular Hemoglobin 33, Mean Corpuscular Hemoglobin Concent 35, Red Cell Distribution Width 13.4, Platelet Count 258, Mean Platelet Volume 10.3, Neutrophils (%) (Auto) 53, Lymphocytes (%) (Auto) 30, Monocytes (%) (Auto) 12, Eosinophils (%) (Auto) 5, Basophils (%) (Auto) 1, Neutrophils # (Auto) 3.4, Lymphocytes # (Auto) 1.9, Monocytes # (Auto) 0.8, Eosinophils # (Auto) 0.3, Basophils # (Auto) 0.0, Prothrombin Time 12.6, INR Comment 0.9, Activated Partial Thromboplast Time 28, D-Dimer 0.36, Sodium Level 136, Potassium Level 4.2, Chloride Level 102, Carbon Dioxide Level 22, Anion Gap 12, Blood Urea Nitrogen 13, Creatinine 0.82, Estimat Glomerular Filtration Rate > 60, BUN/Creatinine Ratio 16, Glucose Level 106H, Calcium Level 9.1, Corrected Calcium 8.8, Magnesium Level 2.2, Total Bilirubin 0.6, Aspartate Amino Transf (AST/SGOT) 23, Alanine Aminotransferase (ALT/SGPT) 23, Alkaline Phosphatase 102, Myoglobin 47.1, Troponin I < 0.028, B-Type Natriuretic Peptide 49.2, Total Protein 8.1, Albumin 4.4 09/16/19 12:00: Coronavirus (COVID-19)(PCR) Negative 09/16/19 16:00: Troponin I < 0.028 09/16/19 17:37: Glucometer 109 09/16/19 20:25: Glucometer 136H 09/16/19 22:15: Troponin I < 0.028 09/17/19 05:33: White Blood Count 7.5, Red Blood Count 4.50, Hemoglobin 14.5, Hematocrit 43, Me an Corpuscular Volume 94, Mean Corpuscular Hemoglobin 32, Mean Corpuscular Hemoglobin Concent 34, Red Cell Distribution Width 13.2, Platelet Count 266, Mean Platelet Volume 10.5H, Neutrophils (%) (Auto) 66, Lymphocytes (%) (Auto) 23, Monocytes (%) (Auto) 11, Eosinophils (%) (Auto) 1, Basophils (%) (Auto) 0, Neutrophils # (Auto) 4.9, Lymphocytes # (Auto) 1.7, Monocytes # (Auto) 0.8, Eosinophils # (Auto) 0.1, Basophils # (Auto) 0.0, Sodium Level 138, Potassium Level 4.2, Chloride Level 104, Carbon Dioxide Level 21, Anion Gap 13, Blood Urea Nitrogen 15, Creatinine 0.79, Estimat Glomerular Filtration Rate > 60, BUN/ Creatinine Ratio 19, Glucose Level 102, Calcium Level 9.2, Corrected Calcium 9.2, Total Bilirubin 0.5, Aspartate Amino Transf (AST/SGOT) 19, Alanine Aminotransferase (ALT/SGPT) 20, Alkaline Phosphatase 89, Total Protein 7.6, Albumin 4.0, Triglycerides Level 54, Cholesterol Level 145, LDL Cholesterol Direct 43, VLDL Cholesterol 11, HDL Cholesterol 72H Patient resulted labs reviewed. Pending Labs Laboratory Tests 09/17/19 05:33: White Blood Count 7.5, Red Blood Count 4.50, Hemoglobin 14.5, Hematocrit 43, Mean Corpuscular Volume 94, Mean Corpuscular Hemoglobin 32, Mean Corpuscular Hemoglobin Concent 34, Red Cell Distribution Width 13.2, Platelet Count 266, Mean Platelet Volume 10.5, Neutrophils (%) (Auto) 66, Lymphocytes (%) (Auto) 23, Monocytes (%) (Auto) 11, Eosinophils (%) (Auto) 1, Basophils (%) (Auto) 0, Neutrophils # (Auto) 4.9, Lymphocytes # (Auto) 1.7, Monocytes # (Auto) 0.8, Eosinophils # (Auto) 0.1, Basophils # (Auto) 0.0, Sodium Level 138, Potassium Level 4.2, Chloride Level 104, Carbon Dioxide Level 21, Anion Gap 13, Blood Urea Nitrogen 15, Creatinine 0.79, Estimat Glomerular Filtration Rate > 60, BUN/Creatinine Ratio 19, Glucose Level 102, Calcium Level 9.2, Corrected Calcium 9.2, Total Bilirubin 0.5, Aspartate Amino Transf (AST/SGOT) 19, Alanine Aminotransferase (ALT/SGPT) 20, Alkaline Phosphatase 89, Total Protein 7.6, Albumin 4.0, Triglycerides Level 54, Cholesterol Level 145, LDL Cholesterol Direct 43, VLDL Cholesterol 11, HDL Cholesterol 72 Imaging: Reviewed Imaging Report Discussion & Recommendations Discharge Planning: >30 minutes discharge planning Discharge Home Medications: Active Scripts Active Ventolin Hfa (Albuterol Sulfate) 1 Puff Puff 2 Puff INH Q4H PRN 1 PUFF = 90 MCG Keflex (Cephalexin) 500 Mg Capsule 500 Mg PO BID Prednisone 20 Mg Tab 40 Mg PO DAILY@0700 2 tabs (40mg) per day Azithromycin 250 Mg Tablet 250 Mg PO DAILY@1200 Lisinopril 10 Mg Tablet 10 Mg PO DAILY Reported Ibuprofen 200 Mg Capsule 800 Mg PO Q8H PRN Instructions to patient/family Please see electronic discharge instructions given to patient. Clinical Quality Measures DVT/VTE Risk/Contraindication: Risk Factor Score Per Nursin RFS Level Per Nursing on Admit: 3=High Problem Qualifiers (1) HTN (hypertension): Hypertension type: essential hypertension Qualified Codes: I10 - Essential (primary) hypertension (2) Chest pain: Chest pain type: chest pain on breathing Qualified Codes: R07.1 - Chest pain on breathing (3) Pneumonia: Pneumonia type: due to unspecified organism Laterality: right Lung location: lower lobe of lung Qualified Codes: J18.1 - Lobar pneumonia, unspecified organism HAMILTON MCKEON MD Sep 17, 2019 09:25
[2019-09-17 11:52] VITALS: BP 117/70
[2019-09-17] MEDS ORDERED: AZITHROMYCIN 250 MG TAB (ZITHROMAX) PO SCH (12:00)
[2019-09-17] MEDS ORDERED: cefTRIAXone FOR IV USE 1,000 MG in WATER (STERILE) FOR INJECTION 10 ML IV SCH (12:00)
[2019-09-17 12:55] VITALS: BP 117/70
--- NOTE | 2019-09-17 13:05 | NUR ---
JEANNETTE FOX Pat demonstrates understanding of discharge instructions and accurately returns instructions upon questioning. Copy of Post-Discharge Instructions and Medication Discharge Instructions given to PT. JEANNETTE FOX is able to manage continuing needs after discharge. Patients belongings returned to PT. Skin dry and intact; no breakdown noted. Patient discharged from [facility] on 09/17/19 at 1305. JEANNETTE FOX left floor via WC, accompanied by STAFF.
--- NOTE | 2019-09-17 13:05 | NUR ---
FOLLOW UP APPOINTMENTS GIVEN TO PT, SHE WAS INSTRUCTED TO CALL HER PCP THURSDAY TO SCHEDULE AN APPOINTMENT FOR 1 WEEK AND TO FOLLOW UP WITH DR RDZ IN 2 WEEKS. F/U FAX SENT TO DR. RDZ'S OFFICE FOR STRESS TEST AT EARLIEST OPENING. 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
--- NOTE | 2019-09-17 14:53 | Cardiology Progress Note ---
Cardiology SOAP Progress Note Subjective: No further chest pain. Objective: I&O/Vital Signs 09/17/19 09/17/19 09/17/19 09/17/19 04:26 07:27 07:48 08:00 Temp 37.2 Pulse 90 76 Resp 18 B/P (MAP) 124/80 (95) Pulse Ox 94 97 O2 Delivery Room Air Room Air Room Air 09/17/19 09/17/19 09/17/19 08:07 11:52 12:55 Temp 36.3 36.3 Pulse 80 90 90 Resp 18 16 16 B/P (MAP) 125/87 (100) 117/70 (86) 117/70 Pulse Ox 94 94 94 O2 Delivery Room Air Room Air Room Air 09/17/19 00:00 Intake Total 710 ml Balance 710 ml Constitutional: AAO x 3 Respiratory: chest is bilaterally symmetric, lungs clear to auscultation Cardiovascular: regular rate-rhythm, S1 and S2; No diastolic murmur, No systolic murmur Gastrointestional: soft, audible bowel sounds; No spleenomegaly Extremities: normal range of motion, non-tender, normal inspection; No clubbing, No cyanosis; no lower extremity edema bilateral; No significant edema Neurologic/Psychiatric: no motor/sensory deficits, alert, normal mood/affect, oriented x 3, power is 5/5 both on sides Skin: normal color, warm/dry; No rash, No ulcerations Results/Procedures: Labs Laboratory Tests 09/16/19 16:00: Troponin I < 0.028 09/16/19 17:37: Glucometer 109 09/16/19 20:25: Glucometer 136H 09/16/19 22:15: Troponin I < 0.028 09/17/19 05:33: White Blood Count 7.5, Red Blood Count 4.50, Hemoglobin 14.5, Hematocrit 43, Mean Corpuscular Volume 94, Mean Corpuscular Hemoglobin 32, Mean Corpuscular Hemoglobin Concent 34, Red Cell Distribution Width 13.2, Platelet Count 266, Mean Platelet Volume 10.5H, Neutrophils (%) (Auto) 66, Lymphocytes (%) (Auto) 23, Monocytes (%) (Auto) 11, Eosinophils (%) (Auto) 1, Basophils (%) (Auto) 0, Neutrophils # (Auto) 4.9, Lymphocytes # (Auto) 1.7, Monocytes # (Auto) 0.8, Eosinophils # (Auto) 0.1, Basophils # (Auto) 0.0, Sodium Level 138, Potassium Level 4.2, Chloride Level 104, Carbon Dioxide Level 21, Anion Gap 13, Blood Urea Nitrogen 15, Creatinine 0.79, Estimat Glomerular Filtration Rate > 60, BUN/Creatinine Ratio 19, Glucose Level 102, Calcium Level 9.2, Corrected Calcium 9.2, Total Bilirubin 0.5, Aspartate Amino Transf (AST/SGOT) 19, Alanine Aminotransferase (ALT/SGPT) 20, Alkaline Phosphatase 89, Total Protein 7.6, Albumin 4.0, Triglycerides Level 54, Cholesterol Level 145, LDL Cholesterol Direct 43, VLDL Cholesterol 11, HDL Cholesterol 72H 09/17/19 11:28: Glucometer 98 Microbiology 09/16/19 Blood Culture - Preliminary, Resulted No growth A/P: Assessment/Dx: Chest pain, Hypertension, Active smoking, PVCs, COPD Plan: Chest pain, initial EKG did not show any acute ST-T wave abnormalities. Serial troponin negative. Will recommend outpatient nuclear stress test. Echocardiogram showed normal LV function. Hypertension, start lisinopril 10 mg daily. Active smoking, smoking cessation was strongly recommended. PVCs, a frequent PVCs, consider beta blockers. COPD, no active wheezing. Will defer to the primary team. Thank you for your consultation. Please call me if you have any questions. Clarke Lopez MD, FACP, FACC, FSCAI, FHRS, CCDS Interventional Cardiology Cardiac Electrophysiology Vascular Medicine and Endovascular Interventions Fernando LOPEZ MD Sep 17, 2019 14:53
== END 2019-09-17 13:05 | disposition home or self-care (01) ==
LOC: EDUNIT# 10:03 → ER 10:04 → 4TH 12:25
PROVIDERS: ADMIT Family Medicine; ATTEND Family Medicine
DX: R07.1 Chest pain on breathing (principal); I10 Essential (primary) hypertension; J18.9 Pneumonia, unspecified organism; J44.9 Chronic obstructive pulmonary disease, unspecified; F17.210 Nicotine dependence, cigarettes, uncomplicated; Z79.51 Long term (current) use of inhaled steroids; Z90.710 Acquired absence of both cervix and uterus; I24.9 Acute ischemic heart disease, unspecified; Z20.828 Contact with and (suspected) exposure to other viral communicable diseases
CPT/HCPCS: 71045; 71046; 80053 ×2; 80061; 82962 ×2; 83735; 83874; 83880; 84484; 85025 ×2; 85379; 85610; 85730; 87040; 93005 ×2; 93041; 93306; 94640 ×3; 94664; 94760; 99284; U0002; 36415; 87635; G0378

== ENCOUNTER → 2019-10-05 | Outpatient (CLI) | payer OTHER ==
[~2019-10-05] MED LIST: AZIT250T12 PO; CEPH-507 PO; IBUP-2185 PO; LISI10TA2 PO; PRD20T PO; RT-ALBUINH INH; RT-ALBUTEROL SULF 2.5 MG/3 ML PRE-MIX VIAL INH ONE
== END ==
LOC: RT 15:23
PROVIDERS: ATTEND Family Medicine
DX: J98.8 Other specified respiratory disorders (principal); F17.210 Nicotine dependence, cigarettes, uncomplicated
CPT/HCPCS: 94060; 94726; 94729

== ENCOUNTER → 2019-10-13 | Outpatient (CLI) | payer OTHER ==
[~2019-10-13] VITALS: Ht 167 cm; Wt 73.0 kg
[~2019-10-13] MED LIST changes: +REGADENOSON 0.4 MG/5 ML SYR (LEXISCAN) IV ONE; -RT-ALBUTEROL SULF 2.5 MG/3 ML PRE-MIX VIAL INH ONE
[2019-10-13] MEDS: CATHETER FLUSH 10 ML SYR IV PRN ×2 (07:40→08:56)
[2019-10-13 08:55] VITALS: BP 147/88
--- NOTE | 2019-10-13 17:34 | Cardiology Stress Test Report ---
Stress Test Report Type of NM Stress Test: Test Type: LEXISCAN 0.4MG/5ML Date of Procedure/Referring: Date of Procedure: Oct 13, 2019 PCP Fernando Lopez MD Admitting Physician No,Local Physician Indications: Chest pain Baseline Heart Rate: 77 Baseline Blood Pressure: Blood Pressure Systolic: 147 Blood Pressure Diastolic: 88 Baseline EKG: Baseline EKG: Sinus rhythm Summary & Conclusion: Summary: The patient was brought to the stress lab after informed consent was taken. St ress test was performed according to the Lexiscan protocol. 0.4 mg of IV Lexiscan was given. Low-grade exercise was performed. Baseline EKG showed sinus rhythm at 77 BPM. Initial blood pressure was 163/93 mmHg. Maximum heart rate was 95 bpm and blood pressure 147/90 mmHg. Patient did not have any chest pain, arrhythmias or ST segment changes during the stress test. 9.67 mCi of Myoview were given for rest imaging and 31.0 mCi of Myoview given for stress imaging. Transient ischemic dilatation score 1.07, EF 57 percent. Normal wall motion. Normal myocardial perfusion imaging during rest and stress. Conclusion: Pharmacological stress test was negative for ischemia. Normal LV function with no wall motion abnormalities. Normal myocardial perfusion imaging during rest and stress. Fernando LOPEZ MD Oct 13, 2019 17:34
== END ==
LOC: CARD 07:25
PROVIDERS: ATTEND Internal Medicine Interventional Cardiology
DX: R07.9 Chest pain, unspecified (principal); Z20.828 Contact with and (suspected) exposure to other viral communicable diseases
CPT/HCPCS: 78452; 93017; A9502

== ENCOUNTER → 2020-08-10 | Outpatient (CLI) | payer OTHER ==
[~2020-08-10] MED LIST changes: -LISI10TA2 PO; +LISI10TA25 PO; -REGADENOSON 0.4 MG/5 ML SYR (LEXISCAN) IV ONE
--- NOTE | 2020-08-10 14:33 | Diagnostic Imaging Report ---
INDICATION: Left knee pain and swelling COMPARISON: None available TECHNIQUE: 3 radiographs of the left knee dated 08/10/2020 FINDINGS: No acute fracture or dislocation. No destructive osseous process. Moderate medial joint space narrowing and mild lateral joint space narrowing. Moderate osteophytosis within the medial compartment with mild osteophytosis within the lateral compartment. Osteophytosis involving the patellofemoral joint, moderate. No significant joint effusion. No suspicious radiopaque foreign body. IMPRESSION: No acute osseous abnormality with moderate degenerative changes, greatest within the medial compartment. Dictated by: Dictated on workstation # [id number]
== END ==
LOC: RAD 12:38
PROVIDERS: ATTEND Family Medicine
DX: M17.12 Unilateral primary osteoarthritis, left knee (principal)
CPT/HCPCS: 73562